=== PATIENT | female | born 1980 | race African-American/Black ===

== ENCOUNTER 2019-07-18 11:10 | Emergency (ER) | payer BC, SELFPAY ==
[2019-07-18 11:11] VITALS: BP 172/105; PULSE 77; RESP 18; O2SAT 100
[2019-07-18 11:12] VITALS: BP 172/105; PULSE 78; RESP 18; TEMP 36.3; O2SAT 100; BMI 37.0
--- NOTE | 2019-07-18 11:32 | EKG12_ITS ---
Test Reason : HTN Blood Pressure : / mmHG Vent. Rate : 065 BPM Atrial Rate : 065 BPM P-R Int : 140 ms QRS Dur : 080 ms QT Int : 394 ms P-R-T Axes : 018 017 -21 degrees QTc Int : 409 ms Normal sinus rhythm Nonspecific T wave abnormality Abnormal ECG Confirmed by RAJENDRA BUI, EDILSON ([id number]), newspaper copy editor MOHINDER REDDY ([id number]) on 07/19/2019 8:51:09 AM Referred By: ZEINAB/ADAM Confirmed By:EDILSON DREW MD
--- NOTE | 2019-07-18 11:33 | ED.VISSUMM ---
- ER Visit Summary Date of Service: 07/18/19 Chief Complaint: Hypertension History of Present Illness: The patient is a 38 F who presents with hypertension and headache that began today. Patient describes her headache as throbbing. Patient states it is localized over the frontal area. Patient states it has been constant throughout the day today. Patient states nothing makes it better or worse. Patient noticed her blood pressure was elevated today at work. Patient does not have a history of hypertension. Patient admits to a family history of hypertension however. Patient denies any chest pain or shortness of breath. Patient denies any nausea or vomiting. Patient denies any visual changes. Physical Examination: Vital signs are stable except for an elevated blood pressure of 172/105. Patient is afebrile. Patient is in no acute distress. Oral mucosa is pink and moist. Neck is supple. Trachea is midline. There is no JVD noted. Heart was regular rate and rhythm. Lungs are clear and equal bilaterally. Abdomen is soft. Bowel sounds are normal. There is no tenderness. There is no rebound or guarding noted. Skin is warm dry. Cranial nerves II through XII are intact. There are no focal motor or sensory deficits noted. Extremities are intact. There is no calf tenderness or edema. Test Results: CBC and comprehensive metabolic profile were within normal limits. Troponin was normal. EKG showed normal sinus rhythm with a rate of 65. There are nonspecific ST-T wave changes. There are no prior EKGs available for comparison. Portable chest x-ray was obtained. There is some mild congestion and some retrocardiac edema/atelectasis. This was interpreted by the radiologist and reviewed by myself. Emergency Department Course and Treatment: Patient was given a dose of clonidine here. Patient blood pressure improved to 126/79 on reevaluation. Patient was feeling better. Patient was given a prescription for hydrochlorothiazide. Patient was instructed to follow-up with her primary care physician in 5 to 7 days. Patient understood and was agreeable with the plan. All questions were answered. Disposition: Discharge home Impression: 1. Hypertension This note was generated with [employer] software. It may contain incorrect words, spelling, and punctuation that were not noted in review of the chart prior to signing ED Disposition - Plan for ED Patient: Disposition: Home or Assisted Living Diagnosis: Hypertension Instructions: ED Hypertension New Begin Treatment Prescriptions: Hydrochlorothiazide [Hctz] 12.5 mg PO DAILY #30 tab Prescription Printed Referrals: NOT,DEFINED [NON-STAFF] - 3-5 Days
--- NOTE | 2019-07-18 11:35 | NURSING ---
NO OLD EKGS
[2019-07-18] MEDS: cloNIDine HCl 0.1 MG Tablet PO (12:01)
[2019-07-18 12:08] LABS: Absolute Lymphocyte Count 2.89 X10^3/uL (0.83-4.51); Absolute Neutrophil Count 4.4 X10^3/uL (2.0-7.7); Basophil# 0.06 X10^3/uL; Basophil% 0.8 % (0-1); Eosinophils% 2.5 % (0-5); Hematocrit 39.1 % (37-47); Hemoglobin 13.3 g/dL (12.0-15.0); Lymphocyte # 2.89 X10^3/ul (4.0); Lymphocyte % 36.2 % (19-41); Mean Corpuscular Volume 76.4 fL (81-99); Mean Platelet Vol. 11.1 fl (6.2-12.0); Monocyte# 0.45 X10^3/uL; Monocyte% 5.6 % (0-10); NRBC Flagged by Analyzer 0 % (0-5); Neutrophil # 4.36 X10^3/uL (2.7-7.7); Neutrophil % 54.5 % (47-70); Platelet Count 265 K/mm3 (150-450); RBC Distribution Width CV 13.8 % (11.6-14.6); RBC Distribution Width SD 37.9 fl (35.1-43.9); Red Blood Count 5.12 M/mm3 (4.2-5.4)
--- NOTE | 2019-07-18 12:13 | RAD_ITS ---
STUDY: X-RAY CHEST REASON FOR EXAM: Female, 38 years old. HTN HEADACHE TECHNIQUE: Single AP portable view of the chest. COMPARISON: None. FINDINGS: Cardiac silhouette unremarkable. Minimal congestion. Aorta unremarkable. Minimal left retrocardiac lung hazy airspace disease. No pleural effusions. Upper abdomen unremarkable. Osseous structures intact. No pneumothorax. RAD/Chest 1 View (Portable) IMPRESSION: Minimal left retrocardiac hazy airspace disease (statistically edema/atelectasis) Minimal congestion Electronically Signed: Kai Nolan DO at 12:43 EDT Tel , Service support ,
[2019-07-18 12:21] LABS: ALB/GLOB Ratio 0.9 RATIO (0.9-2.4); AST(SGOT) 19 U/L (15-37); Alanine Aminotransfer ALT/SGPT 23 U/L (13-56); Albumin, Serum 3.7 g/dL (3.2-5.0); Alkaline Phosphatase 78 U/L (45-117); Anion Gap 4 (5-15); BUN 11 mg/dL (7-18); BUN/Creat Ratio 14.7 RATIO (10-20); Calcium,Total 8.6 mg/dL (8.5-10.1); Chloride 104 mmol/L (98-107); Creatinine, Serum 0.75 mg/dL (0.55-1.02); EST Glomerular Filtration Rate 92 mL/min (>60); Est Glom Filt Rate - Afr Amer 111 mL/min (>60); Estimated Creatinine Clearance 83.31 ml/min; Globulin 4.1 g/dL (2.2-4.2); Glucose 96 mg/dL (74-106); Potassium 3.5 mmol/L (3.5-5.1); Protein, Total 7.8 g/dL (6.4-8.2); Sodium Level 139 mmol/L (136-145)
[2019-07-18 14:11] VITALS: BP 142/95; PULSE 72; RESP 16; O2SAT 98
== END 2019-07-18 14:12 | disposition home or self-care (01) ==
PROVIDERS: Emergency Provider Emergency Medicine
DX: I10 Essential (primary) hypertension (principal); M54.9 Dorsalgia, unspecified; G89.29 Other chronic pain
CPT/HCPCS: 71045; 80053; 84484; 85025; 93005; 99284; A4216

== ENCOUNTER 2019-08-22 11:44 | Emergency (ER) | payer BC, SELFPAY ==
[2019-08-22 11:45] VITALS: BP 153/91; PULSE 85; RESP 18; TEMP 36.6; O2SAT 99; BMI 34.5
--- NOTE | 2019-08-22 11:48 | ED.RN ---
PT CONTINUOUSLY TEXTING ON PHONE. SEEMS PUT OUT WHEN ASKED TO ANSWER QUESTIONS
[2019-08-22] MEDS: cloNIDine HCl 0.1 MG Tablet 0.2 MG PO (12:06)
--- NOTE | 2019-08-22 12:31 | ED.DCSUM_ITS ---
History of Present Illness Chief Complaint: Hypertension Informant: Patient Onset: Weeks Context: Gradual Onset Timing: Continuous Current Severity: Mild Maximum Severity: Mild Narrative: The patient is a 38-year-old female that presents to the emergency department with elevated blood pressure. The patient was seen here just about a month ago. At that point, she had metabolic work-up including EKG, chest x-ray, and screening labs. Labs are unremarkable. She was diagnosed with hypertension and started on low-dose hydrochlorothiazide. The patient states that she has been intermittently compliant with the medication. She states that she is still having blood pressures with systolics of 160. She describes a dull frontal headache. She denies chest pain, shortness of breath, changes in vision, or weakness. She denies any fevers or chills. Prior similar symptoms: No Recent Illness/Hospitalization: No Past Medical History - Allergies and Home Meds Allergies/Adverse Reactions: Allergies No Known Allergies Allergy (Verified 08/22/19 11:48) Primary Care Physician: Care Physician,No Primary [Primary Care Provider] - Prior records reviewed: Yes Past Medical History: - - Likely hypertension Surgical History: noncontributory Smoking Status: Never smoker Review of Systems General: Denies: Chills, Fever, Sweats Eyes: Denies: Visual changes - bilaterally, Diplopia ENT: Denies: Rhinorrhea, Sore throat Cardiovascular: Denies: Chest pain, Palpitations Respiratory: Denies: Dyspnea, Cough, Dyspnea on exertion Gastrointestinal: Denies: Abdominal pain, Nausea, Vomiting, Diarrhea, Melena, Hematochezia Genitourinary: Denies: Dysuria, Hematuria, Frequency Musculoskeletal: Denies: Back pain, Extremity Pain Skin: Denies: Rash, Wounds Neurological: Reports: Headache. Denies: Weakness, Numbness Physical Exam Vital Signs/Narrative: Vital Signs Temp Pulse Resp BP Pulse Ox 08/22/19 11:45 97.8 F 85 18 153/91 H 99 Inital Vital Signs reviewed: Yes General: Well nourished, Well developed, No Acute Distress Head: Normocephalic, Atraumatic Eyes: Perrl, EOMI ENT: Moist mucous membranes, No rhinorrhea Neck: Supple, Nontender Cardiovascular: Regular rate, Regular rhythm, No murmurs Respiratory: No distress, CTA bilaterally, Chest nontender Abdomen: Soft, Nontender, Nondistended, Normal bowel sounds Back: Nontender, Normal Inspection Extremities: Nontender, No edema Skin: Normal color, No rash Neurological: Alert, Oriented x3, Cranial nerves II-XII grossly intact, Normal Strength, Normal Sensation Psychological: Normal affect, Normal Mood Diagnostic/Tx/Re-eval - Medical Decision Making The patient presents to the emergency department with hypertension. She has no symptoms that concern me for hypertensive emergency or other dangerous process. She has a normal neurologic examination. She has had no chest pain or shortness of breath. She has not followed up with her primary care after being started on blood pressure medications. The patient was counseled on the importance of this. She was given oral clonidine with improvement of her blood pressure and resolution of her headache. At this point, I am going to add a calcium channel [place] to her hydrochlorothiazide, but did cemetery counselor her that it is most appropriate to follow-up with primary care. She is comfortable with this plan of care. Impression 1. Hypertension ED Disposition - Plan for ED Patient: Instructions: ED Hypertension New Begin Treatment Prescriptions: Hydrochlorothiazide [Hctz] 12.5 mg PO DAILY #30 tab Prescription Printed Amlodipine [Norvasc] 5 mg PO DAILY #30 tab Prescription Printed Referrals: Gael Del Cid DO [NON CLINICAL AFFILIATE] -
[2019-08-22 12:47] VITALS: BP 160/99; PULSE 82; RESP 17; O2SAT 99
[2019-08-22] MEDS: Acetaminophen 500 MG Tablet 1000 MG PO (13:07)
[2019-08-22 13:17] VITALS: BP 151/81
[2019-08-22 13:39] VITALS: BP 127/66
== END 2019-08-22 13:42 | disposition home or self-care (01) ==
LOC: ED 12:13
PROVIDERS: Emergency Provider Emergency Medicine
DX: I10 Essential (primary) hypertension (principal); Z79.899 Other long term (current) drug therapy
CPT/HCPCS: 99283